=== PATIENT | female | born 1950 | race Caucasian/White ===

== ENCOUNTER 2022-02-26 09:44 | Emergency (ER) | payer OTHER ==
[~2022-02-26] VITALS: Ht 162.6 cm; Wt 145.0 kg
[~2022-02-26 09:44] MED LIST: AML5T PO; ATOR20TA50 PO; CHOL20007 PO; COEN400C8 OR; LISI20TA28 PO; OMEG600C2 PO; VITA100T3 PO
[2022-02-26] MEDS ORDERED: BACITRACIN TOP OINT 1 UD PKG TOP ONE (11:00)
[2022-02-26] MEDS ORDERED: SODIUM CHLORIDE 0.9% 1,000 ML IV ONE (11:00)
[2022-02-26] MEDS ORDERED: LIDOCAINE 2%HCL (LOCAL ANESTH.) INJ 20ML MDV ID ONE (11:00)
[2022-02-26] MEDS ORDERED: ONDANSETRON HCL 4 MG/2 ML VIAL IV ONE (11:15)
[2022-02-26] MEDS ORDERED: KETOROLAC TROMETH 30 MG/ML 1ML VIAL IV ONE (11:15)
[2022-02-26 11:55] LABS: Basophils # (auto) 0 10 ^3/uL (0-0.2); Basophils % (auto) 0.2 % (0.0-2.0); Eosinophils # (auto) 0 10 ^3/uL (0-0.8); Eosinophils % (auto) 0.1 % (0.0-7.0); Hematocrit 47.5 % (36.0-46.0); Hemoglobin 15.6 g/dL (12.2-16.2); Lymphocytes # (auto) 1.3 10 ^3/uL (0.4-5.4); Lymphocytes % (auto) 6.9 % (10.0-50.0); Mean Corpuscular Hgb Conc. 32.8 g/dL (32.0-36.0); Mean Corpuscular Volume 91.4 fL (80.0-100.0); Monocytes # (auto) 0.6 10 ^3/uL (0-1.3); Monocytes % (auto) 3.1 % (0.0-12.0); Neutrophils % (auto) 89.7 % (37.0-80.0); Red Blood Cells 5.19 10^6/uL (4.0-5.20); Red Cell Distribution Width 13.7 % (11.8-14.3); White Blood Cell 18.9 10^3/uL (4.4-10.8)
[2022-02-26 12:05] LABS: Alcohol, Urine < 3.0 mg/dL (0-10); Amphetamine Screen, Urine NEGATIVE (NEGATIVE); Barbiturate Scree,Urine NEGATIVE (NEGATIVE); Benzodiazephine Screen, Urine NEGATIVE (NEGATIVE); Cannabinoid Screen, Urine POSITIVE (NEGATIVE); Cocaine Screen, Urine NEGATIVE (NEGATIVE); Opiate Scree,Urine NEGATIVE (NEGATIVE); Phencyclidine Screen, Urine NEGATIVE (NEGATIVE)
[2022-02-26 12:13] LABS: Albumin 4.2 g/dL (3.4-5.0); Calcium 9.1 mg/dL (8.5-10.1); Magnesium 2.2 mg/dL (1.6-2.6); Potassium 3.3 mmol/L (3.5-5.1)
[2022-02-26 12:17] LABS: BUN/Creatinine Ratio 17.6; Bilirubin, Total 0.4 mg/dL (0.2-1.0); Total Protein 8.3 g/dL (6.4-8.2)
[2022-02-26 12:49] LABS: Urine Bacteria NONE SEEN /hpf (None Seen); Urine Blood Negative /uL (Negative); Urine Specific Gravity 1.011 (1.001-1.035); Urine WBC 1 /hpf (0 - 5)
[2022-02-26] MEDS ORDERED: IOHEXOL 350 MG/ML 100ML IJ ONE (13:52)
[2022-02-26] MEDS ORDERED: CEFD300C2 PO (16:28)
[2022-02-26] MEDS ORDERED: NAP500T PO (16:28)
[2022-02-26 17:00] VITALS: BP 134/77
== END 2022-02-26 17:28 | disposition home or self-care (01) ==
LOC: ER 09:44 → EDBD 09:44 → ER 17:17
DX: S01.81XA Laceration without foreign body of other part of head, initial encounter (principal); R79.1 Abnormal coagulation profile; E87.6 Hypokalemia; Z86.73 Personal history of transient ischemic attack (TIA), and cerebral infarction without residual deficits; Z88.2 Allergy status to sulfonamides; X58.XXXA Exposure to other specified factors, initial encounter; Y93.89 Activity, other specified; Y92.89 Other specified places as the place of occurrence of the external cause; Y99.8 Other external cause status
CPT/HCPCS: 12013; 36415; 70450; 70486; 71275; 72125; 80053; 80307; 81001; 83735; 84484; 85025; 85379; 93005; 96361; 96374; 96375; 99285; J1885; J2405; J7030; Q9967

== ENCOUNTER 2022-11-11 13:57 | Inpatient (IN) | payer OTHER ==
[~2022-11-11] VITALS: Ht 162.6 cm; Wt 58.0 kg
[~2022-11-11 13:57] MED LIST changes: +CEFD300C2 PO; +NAP500T PO
[2022-11-11] MEDS ORDERED: cloNIDine HCL 0.1 MG TAB PO ONE (14:45)
[2022-11-11 14:52] LABS: Basophils # (auto) 0.1 10 ^3/uL (0-0.2); Eosinophils # (auto) 0.1 10 ^3/uL (0-0.8); Eosinophils % (auto) 0.7 % (0.0-7.0); Hematocrit 47.3 % (36.0-46.0); Hemoglobin 15.9 g/dL (12.2-16.2); Lymphocytes # (auto) 2.8 10 ^3/uL (0.4-5.4); Lymphocytes % (auto) 26.2 % (10.0-50.0); Mean Corpuscular Hemoglobin 30.8 pg (28.0-32.0); Mean Corpuscular Hgb Conc. 33.6 g/dL (32.0-36.0); Mean Corpuscular Volume 91.7 fL (80.0-100.0); Monocytes # (auto) 0.5 10 ^3/uL (0-1.3); Monocytes % (auto) 4.5 % (0.0-12.0); Neutrophils # (auto) 7.2 10 ^3/uL (1.6-8.6); Neutrophils % (auto) 67.6 % (37.0-80.0); Nucleated Red Blood Cells % 0.2 %; Red Blood Cells 5.15 10^6/uL (4.0-5.20); Red Cell Distribution Width 13.9 % (11.8-14.3); White Blood Cell 10.7 10^3/uL (4.4-10.8)
[2022-11-11 14:55] LABS: Urine Bacteria FEW /hpf (None Seen); Urine Blood Negative /uL (Negative); Urine Mucus FEW (None Seen); Urine Specific Gravity 1.021 (1.001-1.035); Urine WBC 2 /hpf (0 - 5)
[2022-11-11 15:14] LABS: Albumin 4.1 g/dL (3.4-5.0); Calcium 9.3 mg/dL (8.5-10.1); Potassium 3.6 mmol/L (3.5-5.1)
[2022-11-11 15:17] LABS: Bilirubin, Total 0.6 mg/dL (0.2-1.0); Total Protein 7.4 g/dL (6.4-8.2)
[2022-11-11] MEDS ORDERED: hydrALAZINE HCL 20 MG/ML VL IV PRN (18:30)
[2022-11-11] MEDS ORDERED: ATORVASTATIN 20 MG TAB PO SCH (22:00)
[2022-11-11] MEDS ORDERED: LISINOPRIL 20 MG TAB PO SCH (22:00)
[2022-11-12] MEDS ORDERED: amLODIPine BESYLATE 5 MG TAB PO SCH (10:00)
[2022-11-12] MEDS ORDERED: PANTOPRAZOLE 40 MG/10 ML VIAL INJ IV SCH (10:00)
[2022-11-12] MEDS ORDERED: ASPirin 81 mg TAB PO SCH (10:00)
[2022-11-12 14:18] VITALS: BP 136/83
== END 2022-11-12 14:19 | disposition home or self-care (01) | DRG 123 ==
LOC: ER 13:57 → TELE 18:12
PROVIDERS: ADMIT Nurse Practitioner Family; ATTEND Nurse Practitioner Family
DX: H53.2 Diplopia (principal); E78.5 Hyperlipidemia, unspecified; I10 Essential (primary) hypertension; K21.9 Gastro-esophageal reflux disease without esophagitis; Z86.73 Personal history of transient ischemic attack (TIA), and cerebral infarction without residual deficits; Z95.2 Presence of prosthetic heart valve; Z88.2 Allergy status to sulfonamides
CPT/HCPCS: 36415; 70450; 70551; 80053; 81001; 84484; 85025; 93005; G0378

== ENCOUNTER 2024-05-18 07:34 | Emergency (ER) | payer OTHER ==
[~2024-05-18] VITALS: Ht 162.6 cm; Wt 60.6 kg
[~2024-05-18 07:34] MED LIST changes: -LISI20TA28 PO; +LISI20TA56 PO
[2024-05-18] MEDS: cloNIDine HCL 0.1 MG TAB PO ONE (08:07)
--- NOTE | 2024-05-18 08:20 | ED.PDOC ---
History of Present Illness HPI Comments 73Y F with PMHx CVA (2018) and heart valve surgery presents to ED for chief complaint headache. Pt began to experience a constant rt sided headache last night at 2200, took Aspirin, and then went to bed. Pt then woke up today at 0530 with the the same headache and called EMS. Per pt, EMS advised her to come to the ER due to elevated BP, systolic >150. Pt denies any h/o of HTN dx. Upon ED arrival, BP was 171/93. Pt denies vision changes, dizziness, and gait changes. Pt states she usually gets "ice pick headache" and is currently being f/u by neurologist Dr. Julien. Pt had brain MRI done on 04/26/2024 with [facility]. Allergies include sulfa abx. Chief Complaint: Headache Time Seen by MD: 08:08 Primary Care Provider: NONE Reviewed Notes: Medications, Allergies Allergies: Coded Allergies: Sulfa Antibiotics (Unverified Allergy, Unknown, 02/14/14) Home Meds Active Scripts Naproxen (NAPROSYN TABLET) 500 Mg Tb, 1 TAB PO BID for 5 Days, #10 TAB 1 Refill Prov:NATACHA OSEI MD 02/26/22 Cefdinir (Cefdinir) 300 Mg Cap, 1 CAP PO BID for 7 Days, #14 CAP Prov:NATACHA OSEI MD 02/26/22 Amlodipine Besylate (NORVASC TABLET) 5 Mg Tb, 1 TAB PO DAILY, #30 TAB Prov:SANDRINE JAMA MD 12/11/17 Atorvastatin Calcium (ATORVASTATIN CALCIUM) 20 Mg Tab, 20 MG PO HS, #30 TAB Prov:SANDRINE JAMA MD 12/11/17 Reported Medications Alpha Tocopheryl Acid Succinat (VITAMIN E) 100 Unit Tab, 100 UNIT PO DAILY, TAB 12/08/17 Cholecalciferol (VITAMIN D3) 2,000 Unit Tab, 1 TAB PO DAILY, #30 TAB 5 Refills 12/08/17 Underwood-3 Fatty Acids (FISH OIL) 600 Mg Cap, 600 MG PO DAILY, CAP 12/08/17 Coenzyme Q10 (Ubidecarenone) (COQ-10) 400 Mg Cap, 400 MG OR DAILY, CAP 12/08/17 Lisinopril (Lisinopril) 20 Mg Tab, 20 MG PO HS for 30 Days, MG 02/12/14 Information Source: Patient Mode of Arrival: Ambulatory Severity: Mild Timing: Hours Duration: Intermittent Past Medical History PAST MEDICAL HISTORY: CVA, GERD Surgical History (Other): heart valve surgery 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 Family History Family History: Reviewed,noncontributory to illness Social History Smoker: Non-Smoker Alcohol: Rarely Drugs: Denies Drug Use Lives In: Home Constitutional: denies: chills, diaphoresis, fatigue, fever, malaise, sweats, weakness, others EENTM: denies: blurred vision, double vision, ear bleeding, ear discharge, ear drainage, ear pain, ear ringing, eye pain, eye redness, hearing loss, mouth pain, mouth swelling, nasal discharge, nose bleeding, nose congestion, nose pain, photophobia, tearing, throat pain, throat swelling, voice changes, others Respiratory: denies: cough, hemoptysis, orthopnea, SOB at rest, shortness of breath, SOB with excertion, stridor, wheezing, others Cardiovascular: denies: chest pain, dizzy spells, diaphoresis, Dyspnea on exertion, edema, irregular heart beat, left arm pain, lightheadedness, palpitations, PND, syncope, others Gastrointestinal: denies: abdomen distended, abdominal pain, blood streaked bowels, constipated, diarrhea, dysphagia, difficulty swallowing, hematemesis, melena, nausea, poor appetite, poor fluid intake, rectal bleeding, rectal pain, vomiting, others Genitourinary: denies: abnormal vagina bleeding, burning, dyspareunia, dysuria, flank pain, frequency, hematuria, incontinence, pain, , vagina discharge, urgency, others Neurological: reports: headache; denies: dizziness, fainting, left sided numbness, left sided weakness, numbness, paresthesia, pre-existing deficit, right sided numbness, right sided weakness, seizure, speech problems, tingling, tremors, weakness, others Musculoskeletal: denies: back pain, gout, joint pain, joint swelling, muscle pain, muscle stiffness, neck pain, others Integumetry: denies: bruises, change in color, change in hair/nails, dryness, laceration, lesions, lumps, rash, wounds, others Allergic/Immunocompromised: denies: Difficulty Healing, Frequent Infections, Hives, Itching, others Hematologic/Lymphatic: denies: anemia, blood clots, easy bleeding, easy bruising, swollen glands, others Endocrine: denies: excessive hunger, excessive sweating, excessive thirst, excessive urination, flushing, intolerance to cold, intolerance to heat, une xplained weight gain, unexplained weight loss, others Psychiatric: denies: anxiety, bipolar disorder, depression, hopeless, panic disorder, schizophrenia, sleepless, suicidal, others All Other Systems: Reviewed and Negative Physical Exam General Appearance: Moderate Distress, Normal HEENT: Normal ENT Inspection, Pharynx Normal, TMs Normal Neck: Full Range of Motion, Non-Tender, Normal, Normal Inspection Respiratory: Chest Non-Tender, Lungs Clear, No Accessory Muscle Use, No Respiratory Distress, Normal Breath Sounds Cardiovascular: No Edema, No JVD, No Murmur, No Gallop, Normal Peripheral Pulses, Regular Rate/Rhythm Breast Exam: Deferred Gastrointestinal: No Organomegaly, Non Tender, No Pulsatile Mass, Normal Bowel Sounds, Soft Genitalia: Deferred Pelvic: Deferred Rectal: Deferred Extremities: No calf tenderness, Normal capillary refill, Normal inspection, Normal range of motion, Non-tender, No pedal edema Musculoskeletal : Apperance: Normal Neurologic: Alert, auto clutch specialist II-XII nml as Tested, No Motor Deficits, Normal Affect, Normal Mood, No Sensory Deficits Cerebellar Function: Normal Reflexes: Normal Skin: Dry, Normal Color, Warm Peripheral Pulses: 3+ Radial (R), 3+ Radial (L) Lymphatic: No Adenopathy Was a procedure done? Was a procedure done?: No Differential Dx Considerations may include: TIA Electrolyte imbalance X-Ray, Labs, Meds, VS Vital Signs Date Time Temp Pulse Resp B/P (MAP) Pulse Ox O2 Delivery O2 Flow Rate FiO2 05/18/24 08:13 72 17 98 Room Air 05/18/24 08:13 97.7 72 17 139/74 (95) 98 97.7 05/18/24 08:10 139/79 05/18/24 07:47 98.0 87 18 171/93 (119) 96 Lab Test 05/18/24 08:35 Range/Units White Blood Count 8.7 4.4-10.8 10^3/uL Red Blood Count 5.12 4.0-5.20 10^6/uL Hemoglobin 16.1 12.2-16.2 g/dL Hematocrit 47.7 H 36.0-46.0 % Mean Corpuscular Volume 93.2 80.0-100.0 fL Mean Corpuscular Hemoglobin 31.5 28.0-32.0 pg Mean Corpuscular Hemoglobin Concent 33.8 32.0-36.0 g/dL Red Cell Distribution Width 13.6 11.8-14.3 % Platelet Count 234 140-450 10^3/uL Mean Platelet Volume 8.1 6.9-10.8 fL Neutrophils (%) (Auto) 69.6 37.0-80.0 % Lymphocytes (%) (Auto) 23.1 10.0-50.0 % Monocytes (%) (Auto) 5.4 0.0-12.0 % Eosinophils (%) (Auto) 1.0 0.0-7.0 % Basophils (%) (Auto) 0.9 0.0-2.0 % Neutrophils # (Auto) 6.1 1.6-8.6 10 ^3/uL Lymphocytes # (Auto) 2.0 0.4-5.4 10 ^3/uL Monocytes # (Auto) 0.5 0-1.3 10 ^3/uL Eosinophils # (Auto) 0.1 0-0.8 10 ^3/uL Basophils # (Auto) 0.1 0-0.2 10 ^3/uL Nucleated Red Blood Cells 0.1 % Sodium Level 140 136-145 mmol/L Potassium Level 3.5 3.5-5.1 mmol/L Chloride Level 108 H 98-107 mmol/L Carbon Dioxide Level 21 20-31 mmol/L Anion Gap 11 5-15 Blood Urea Nitrogen 12 9-23 mg/dL Creatinine 0.75 0.550-1.02 mg/dL Glomerular Filtration Rate Calc 85 >90 mL/min BUN/Creatinine Ratio 16.0 10.0-20.0 Serum Glucose 116 H 74-106 mg/dL Calcium Level 9.9 8.7-10.4 mg/dL Troponin I High Sensitivity 3 L </=34 ng/L [facility] [id number] [place] [id number] Ph: [phone] DIAGNOSTIC IMAGING Diagnostic Imaging Report : [id number] Signed PATIENT: KETTY BAEZA MAYRAT: [id number] UNIT: [id number] : 1950 LOC: ER ROOM / BED: / AGE / SEX: 73 / F ADM STATUS: REG ER SERVICE 3 ORDERING PHYSICIAN: KALEIGH BAJWA MD PROCEDURE(s): HWOCT - HEAD WITHOUT CONTRAST REASON: headache ORDER NUMBER(s): [id number], ACCESSION NUMBER(s): [id number] CLINICAL INFORMATION: 73 years old, Female; headache. TECHNIQUE: Axial imaging was obtained through the brain without contrast. Coronal and sagittal reformatted images were obtained, reviewed, and stored. Images were reviewed in brain and bone windows. All CT scans at this medical facility are performed using dose modulation techniques as appropriate to a performed exam including the following: Automated exposure control was utilized; adjustment of the MA and/or KV according to patient size; and use of iterative reconstruction technique. CTDIvol = 50.19 mGy DLP = 803.6 mGy-cm COMPARISON: MRI BRAIN HEAD WO CONTRAST on DOS: 11/12/22, CT HEAD WITHOUT CONTRAST on DOS: 11/11/22, CT ANGIO CHEST CONTRAST on DOS: 02/26/22 FINDINGS: There is no acute intracranial hemorrhage or extraaxial fluid colle ction. No mass effect or midline shift. Similar-appearing encephalomalacia in the right temporal lobe. Bilateral chronic appearing lacunar infarcts in the thalami. Chronic appearing lacunar infarcts in the basal ganglia bilaterally. Scattered areas of hypoattenuation are seen in the periventricular and subcortical white matter, which are nonspecific but most likely sequelae of smal l vessel ischemic disease.The ventricles and sulci are within normal limits in size for age. Basal cisterns are patent. The calvarium is unremarkable. Paranasal sinuses and mastoid air cells are clear. IMPRESSION: 1. No CT evidence of acute intracranial abnormality. 2. Nonacute findings as detailed above. ATED BY: ALBIN RICO DO DICTATED DATE/TIME: 05/18/24844 SIGNED BY: ALBIN RICO DO SIGNED DATE/TIME: 05/18/24844 CC: Patient alert. Complaining of headache. No history of hypertension. Vitals stable. Answering questions. She had a MRI done recently at outside facility no acute process. Had a stroke in the past. Good muscle strength. No deficits. EKG reviewed does not show any acute changes. CT of the head reviewed does not show any acute changes. Reviewed her previous visit. Was told to follow up with her primary care physician. Was told come back there is any problem. Time of 1ST Reevaluation: 08:21 Reevaluation 1ST: Unchanged Time of 2ND Reevaluation: 09:43 Reevaluation 2ND: Improved Patient Education/Counseling: Diagnosis, Treatment Family Education/Counseling: No Family Present Departure 1 Departure Time of Disposition: 08:22 Impression: Primary Impression: History of CVA (cerebrovascular accident) Additional Impression: Headache Qualified Codes: R51.9 - Headache, unspecified; G89.29 - Other chronic pain Disposition: 01 HOME / SELF CARE / HOMELESS Condition: Good Discharged With: Self Critical Care Note Critical Care Time?: No Stability Stability form required: No Heart Score Heart Score: Heart Score Response (Comments) Value History Slightly Suspicious 0 EKG Normal 0 Age >65 2 Risk Factors 1 or 2 risk factors 1 Troponin Normal limit 0 Total 3 I personally scribed for KALEIGH BAJWA MD ([email or web address]) on 05/18/24 at 08:20. Electronically submitted by Carito Grey ([email or web address]). I personally scribed for KALEIGH BAJWA MD ([email or web address]) on 05/18/24 at 08:55. Electronically submitted by Carito Grey ([email or web address]). KALEIGH BAJWA MD May 18, 2024 08:20
--- NOTE | 2024-05-18 08:48 | DVH ---
CLINICAL INFORMATION: 73 years old, Female; headache. TECHNIQUE: Axial imaging was obtained through the brain without contrast. Coronal and sagittal refor matted images were obtained, reviewed, and stored. Images were reviewed in brain and bone windows. A ll CT scans at this medical facility are performed using dose modulation techniques as appropriate to a performed exam including the following: Automated exposure control was utilized; adjustment of the MA and/or KV according to patient size; and use of iterative reconstruction technique. CTDIvol = 50.19 mGy DLP = 803.6 mGy-cm COMPARISON: MRI BRAIN HEAD WO CONTRAST on DOS: 11/12/22, CT HEAD WITHOUT CONTRAST on DOS: 11/11/22, CT ANGIO CHEST CONTRAST on DOS: 02/26/22 FINDINGS: There is no acute intracranial hemorrhage or extraaxial fluid collection. No mass effect o r midline shift. Similar-appearing encephalomalacia in the right temporal lobe. Bilateral chronic jessy earing lacunar infarcts in the thalami. Chronic appearing lacunar infarcts in the basal ganglia bilat erally. Scattered areas of hypoattenuation are seen in the periventricular and subcortical white vinod er, which are nonspecific but most likely sequelae of small vessel ischemic disease.The ventricles an d sulci are within normal limits in size for age. Basal cisterns are patent. The calvarium is unr emarkable. Paranasal sinuses and mastoid air cells are clear. IMPRESSION: 1. No CT evidence of acute intracranial abnormality. 2. Nonacute findings as detailed above.
[2024-05-18 08:58] LABS: Basophils # (auto) 0.1 10 ^3/uL (0-0.2); Basophils % (auto) 0.9 % (0.0-2.0); Eosinophils # (auto) 0.1 10 ^3/uL (0-0.8); Hematocrit 47.7 % (36.0-46.0); Hemoglobin 16.1 g/dL (12.2-16.2); Lymphocytes % (auto) 23.1 % (10.0-50.0); Mean Corpuscular Hemoglobin 31.5 pg (28.0-32.0); Mean Corpuscular Hgb Conc. 33.8 g/dL (32.0-36.0); Mean Corpuscular Volume 93.2 fL (80.0-100.0); Monocytes # (auto) 0.5 10 ^3/uL (0-1.3); Monocytes % (auto) 5.4 % (0.0-12.0); Neutrophils # (auto) 6.1 10 ^3/uL (1.6-8.6); Neutrophils % (auto) 69.6 % (37.0-80.0); Nucleated Red Blood Cells % 0.1 %; Platelet Count (auto) 234 10^3/uL (140-450); Red Blood Cells 5.12 10^6/uL (4.0-5.20); Red Cell Distribution Width 13.6 % (11.8-14.3); White Blood Cell 8.7 10^3/uL (4.4-10.8)
[2024-05-18 09:21] LABS: Chloride 108 mmol/L (98-107); Potassium 3.5 mmol/L (3.5-5.1); Sodium 140 mmol/L (136-145)
[2024-05-18 09:22] LABS: Anion Gap 11 (5-15); Carbon Dioxide 21 mmol/L (20-31)
[2024-05-18 09:23] LABS: Calcium 9.9 mg/dL (8.7-10.4)
[2024-05-18 09:28] LABS: Blood Urea Nitrogen 12 mg/dL (9-23); Glucose 116 mg/dL (74-106)
[2024-05-18] MEDS: HYDROcodone-ACET 10/325MG TAB PO ONE (09:49)
[2024-05-18 09:53] VITALS: BP 134/65; PULSE 88; RESP 17; TEMP 98.1; O2SAT 97
== END 2024-05-18 09:56 | disposition home or self-care (01) ==
LOC: ER 07:34
DX: R51.9 Headache, unspecified (principal); K21.9 Gastro-esophageal reflux disease without esophagitis; Z86.73 Personal history of transient ischemic attack (TIA), and cerebral infarction without residual deficits; Z98.890 Other specified postprocedural states; Z88.2 Allergy status to sulfonamides; Z79.899 Other long term (current) drug therapy
CPT/HCPCS: 36415; 70450; 80048; 84484; 85025